=== PATIENT | female | born 1950 | race Caucasian/White ===

== ENCOUNTER → 2017-12-28 | Outpatient (CLI) | payer MEDICARE, BC ==
[2017-12-28 14:32] VITALS: BP 162/98; PULSE 79; RESP 20; TEMP 98.6; BMI 47.2
--- NOTE | 2017-12-28 14:33 | P.BASOAP ---
Subjective Progress Note Date: 12/28/17 Principal diagnosis: Dysphagia Patient on our service. He had lap band placed in 2007. Has had problems with intractable vomiting over the last several years. Has had an esophagram and a upper endoscopy performed at [facility] per the patient. Those studies were reportedly normal. Patient interested in the band removal. Has questions regarding conversion. Has bad reflux. Is more interested in gastric bypass because of the decreased incidence of reflux when compared to sleeve conversion. Denies abdominal pain. Objective - Vital Signs Vital signs: Vital Signs Temp 98.6 F 12/28/17 14:06 Pulse 79 12/28/17 14:06 Resp 20 12/28/17 14:06 BP 162/98 12/28/17 14:06 Pulse Ox Intake & Output 12/27/17 12/28/17 12/28/17 18:59 06:59 18:59 Weight 124.693 kg - Exam Abdomen: Soft, nontender, nondistended Assessment/Plan (1) Morbid obesity Narrative/Plan: Will talk to [facility] regarding insurance coverage for band removal. This would be considered a medical necessity given the intractable vomiting. Once the patient has fully recovered patient will likely seek consultation for conversion to gastric bypass. Plan: Date: 12/28/17 Initial Weight: 124.693 kg Initial BMI: 47.2 Current Weight: 124.693 kg Current BMI: 47.2 Type of Surgery: Total Volume in Band: 0 Previous Volume: Volume Removed: Volume Added: Band Size:
== END | disposition home or self-care (01) ==
LOC: BARWHC3 13:56
PROVIDERS: ATTEND Surgery
DX: E66.01 Morbid (severe) obesity due to excess calories (principal); Z68.42 Body mass index [BMI] 45.0-49.9, adult; Z98.84 Bariatric surgery status
CPT/HCPCS: 99201

== ENCOUNTER 2018-02-11 07:51 | Day surgery (SDC) | payer MEDICARE, BC ==
[2018-02-04 14:39] VITALS: BMI 45.6
[~2018-02-11 07:51] MED LIST: DEXAMETHASONE SOD PHOSPHATE 10 MG/ML 1 ML VIAL IV ONE; HEPARIN SODIUM,PORCINE 5,000 UNIT/ML 1 ML VIAL SQ ONE; HYDROmorphone 0.5 MG/0.5 ML SYRINGE IVP PRN; LACTATED RINGERS 1,000 ML IV SCH; LIDOCAINE 1% 20 ML VIAL (10MG/ML) FOR IV START INTRADERMA PRN; MIDAZOLAM 2 MG/2 ML VIAL IV PRN; ONDANSETRON 4 MG/2 ML VIAL IVP ONE; fentaNYL (PF) 50 MCG/ML 2 ML AMP IV PRN
--- NOTE | 2018-02-11 09:10 | P.GSHP ---
History of Present Illness H&P Date: 02/11/18 Chief Complaint: Dysphagia 67-year-old female known to our service. She underwent previous lap band placement in 2007. Patient has had problems with intractable vomiting. Patient is interested band removal. She is considering conversion to gastric bypass in the future. Past Medical History Past Medical History: GERD/Reflux Additional Past Medical History / Comment(s): DDD; chronic back pain secondary to 3 herniated discs, T12, L1, L4-5, bladder dysfunction/stress incontinence History of Any Multi-Drug Resistant Organisms: None Reported Past Surgical History: Adenoidectomy, Bariatric Surgery, Cholecystectomy, Orthopedic Surgery, Tonsillectomy Additional Past Surgical History / Comment(s): T & A 1966, Rhand carpal tunnel 1994 Left hand 1999, cholecystectomy 2006,Lap band placed 2007, Left heel spur 2010 Right 2016; eyelid lift 2012, D & C 2012, colonoscopy 2012 & 2016, Cervical spine fusion (C5-6-7) 2013, Right rotator cuff and shoulder repair 2015 , Past Anesthesia/Blood Transfusion Reactions: No Reported Reaction Additional Past Anesthesia/Blood Transfusion Reaction / Comment(s): NO transfusion to date. Patient states she had one problem waking up while at [employer] in 2006, but has never had any problems since and did not have any issues with Dr. Desai. States she has had 5 sx since this issue with no problems Smoking Status: Former smoker - Past Family History Father Family Medical History: Hypertension Additional Family Medical History / Comment(s): at age 87 from arthersclorosis Mother Family Medical History: Coronary Artery Disease (CAD) Additional Family Medical History / Comment(s): at age 80 from CAD Sister(s) Family Medical History: Cancer Additional Family Medical History / Comment(s): 2 sisters with cancer 1 with breast cancer, 1 sister back of the lining of the lungs cancer Medications and Allergies Home Medications Medication Instructions Recorded Confirmed Type Darifenacin Hydrobromide [Enablex] 15 mg PO DAILY 12/28/17 02/11/18 History Meloxicam [Mobic] 15 mg PO DAILY 12/28/17 02/11/18 History Omeprazole [PriLOSEC] 20 mg PO AC-[id number] 12/28/17 02/11/18 History Allergies Allergy/AdvReac Type Severity Reaction Status Date / Time bacitracin Allergy Intermediate Rash/Hives Verified 02/11/18 08:17 [From Neosporin ([id number])] neomycin Allergy Intermediate Rash/Hives Verified 02/11/18 08:17 [From Neosporin ([id number])] polymyxin B Allergy Intermediate Rash/Hives Verified 02/11/18 08:17 [From Neosporin ([id number])] Surgical - Exam Vital Signs Temp Pulse Resp BP Pulse Ox 98.0 F 75 16 165/90 96 02/11/18 08:14 02/11/18 08:14 02/11/18 08:14 02/11/18 08:14 02/11/18 08:14 Physical exam: General: Well-developed, well-nourished HEENT: Normocephalic, sclerae nonicteric Abdomen: Nontender, nondistended Extremities: No edema Neuro: Alert and oriented Assessment and Plan (1) Intractable vomiting Narrative/Plan: Will proceed with laparoscopic band removal at this time. The risks of bleeding , infection, stenosis, stricture, leak, abscess, fistula formation, peritonitis , reflux, vomiting, conversion to an open procedure, MA, PE, DVT, and were discussed. The patient understands and wishes to proceed. Current Visit: Yes Status: Acute Code(s): R11.10 - VOMITING, UNSPECIFIED SNOMED Code(s): 620650425
[2018-02-11] MEDS ORDERED: fentaNYL (PF) 50 MCG/ML 2 ML AMP ONE (09:34)
[2018-02-11] MEDS ORDERED: GLYCOPYRROLATE 0.2 MG/ML 2 ML VIAL ONE (09:34)
[2018-02-11] MEDS ORDERED: PROPOFOL 10 MG/ML 20 ML VIAL IV ONE (09:34)
[2018-02-11] MEDS ORDERED: LIDOCAINE 1% INJ 10MG/ML (20 ML MDV) ONE (09:34)
[2018-02-11] MEDS ORDERED: SUCCINYLCHOLINE CHLORIDE VIAL 200 MG/10 ML VIAL IV ONE (09:34)
[2018-02-11] MEDS ORDERED: NEOSTIGMINE 1 MG/ML 10 ML VIAL ONE (09:34)
[2018-02-11] MEDS ORDERED: MIDAZOLAM 2 MG/2 ML VIAL ONE (09:34)
[2018-02-11] MEDS ORDERED: LIDOCAINE 1% INJ 10MG/ML (10 ML MDV) SQ ONE (10:06)
--- NOTE | 2018-02-11 10:46 | P.OP ---
Date of Procedure: 02/11/18 Procedure(s) Performed: PREOPERATIVE DIAGNOSIS: Band intolerance/abdominal pain/intractable vomiting POSTOPERATIVE DIAGNOSIS: Same PROCEDURE: Laparoscopic lap band removal SURGEON: Giselle EBL: Minimal ANESTHESIA: General COMPLICATIONS: None OPERATIVE PROCEDURE: The patient was brought and placed on the operating room table in the supine position. The patient was placed under general anesthesia at that time. The patient was then placed in lithotomy. The abdomen was prepped and draped in the usual sterile fashion. The previous port incision was localized and then incised using a scalpel. The port was easily excised using electrocautery. Entrance into the peritoneal cavity occurred using a 5 mm optical trocar through the old trocar entrance site. Insufflation took place to 15 mmHg. A right subxiphoid 5 mm trocar was placed. This was then removed and the medium Nuria hook was used to elevate the left lobe of the liver anteriorly. An additional 5 mm trocar was placed under direct visualization in the left lateral upper quadrant. The original 5 mm trocar was switched to a 15 mm trocar. A additional 5 mm trocar was placed in the right upper quadrant under direct dilatation. There were adhesions to the band in the buccal that were lysed using both the LigaSure and electrocautery. The band was then cut using the laparoscopic jostin. The band was then removed easily in 2 portions through the 15 mm trocar site. The stomach itself was inspected and revealed no evidence of erosion or prolapse. The trochars were removed. The fascia at the 15 mm site was closed using a Robel-Anika 0 Vicryl stitch. The subcutaneous tissues at the port site was closed using a 3- 0 Vicryl suture. The skin at all 4 incision sites were closed using 4-0 Monocryl sutures. Steri-Strips and sterile dressings were then applied. DISPOSITION: Stable to recovery room
[2018-02-11 11:10] VITALS: TEMP 97.2
[2018-02-11 12:53] VITALS: BP 130/63; PULSE 44; RESP 16
== END 2018-02-11 13:05 | disposition home or self-care (01) ==
LOC: OR 07:51
PROVIDERS: ATTEND Surgery
DX: R11.10 Vomiting, unspecified (principal); K21.9 Gastro-esophageal reflux disease without esophagitis; G89.29 Other chronic pain; E66.01 Morbid (severe) obesity due to excess calories; Z98.84 Bariatric surgery status; Z87.891 Personal history of nicotine dependence; Z82.49 Family history of ischemic heart disease and other diseases of the circulatory system; Z80.3 Family history of malignant neoplasm of breast; Z90.49 Acquired absence of other specified parts of digestive tract; Z79.1 Long term (current) use of non-steroidal anti-inflammatories (NSAID); Z79.899 Other long term (current) drug therapy; Z88.3 Allergy status to other anti-infective agents; Z98.1 Arthrodesis status; Z68.42 Body mass index [BMI] 45.0-49.9, adult
CPT/HCPCS: 43774; J2250; J0330; J1644; J1100; J2710; J0690; J2405; J2001 ×2; J3010; J2704

== ENCOUNTER → 2018-03-01 | Outpatient (CLI) | payer MEDICARE, BC ==
[2018-03-01 14:44] VITALS: BP 131/90; PULSE 79; TEMP 98.2; BMI 47.4
--- NOTE | 2018-03-01 17:19 | P.BASOAP ---
Subjective Progress Note Date: 03/01/18 Principal diagnosis: Abdominal pain Patient seen today postop after lap band removal. The patient has unfortunately been having ongoing complaints of epigastric pain that radiates to the back. Sometimes there is chest pain as well. This is not related to eating or activities. Duration of symptoms is variable. Occasional episodes of vomiting although seems to be slightly improved since band removal. Some pain at her port incision site. Denies fevers. Objective - Vital Signs Vital signs: Vital Signs Temp 98.2 F 03/01/18 14:39 Pulse 79 03/01/18 14:39 Resp BP 131/90 03/01/18 14:39 Pulse Ox Intake & Output 02/28/18 03/01/18 03/01/18 18:59 06:59 18:59 Weight 125.282 kg - Exam Abdomen: Soft, mild epigastric tenderness, incisions clean and dry Assessment/Plan (1) Abdominal pain Narrative/Plan: Patient unfortunately is still having some degree of abdominal pain she has been having for the last 2 years or so. She is disappointed that the band removal did not alleviate those symptoms. The operative findings were reviewed with her. These symptoms are persisting despite antiacid therapy. We'll proceed with CT abdomen and pelvis at this time. If that study is unremarkable recommend reevaluation by GI Dr. Shafer for possible upper endoscopy or further workup. Plan: Date: 03/01/18 Initial Weight: 124.693 kg Initial BMI: 47.2 Current Weight: 125.282 kg Current BMI: 47.4 Type of Surgery: Total Volume in Band: 0 Previous Volume: Volume Removed: Volume Added: Band Size:
== END ==
LOC: BARWHC3 14:17
PROVIDERS: ATTEND Surgery
DX: R10.9 Unspecified abdominal pain (principal)
CPT/HCPCS: 99211

== ENCOUNTER → 2018-03-10 | Outpatient (CLI) | payer MEDICARE, BC ==
--- NOTE | 2018-03-10 16:58 | CT ---
EXAMINATION TYPE: CT abdomen pelvis w con DATE OF EXAM: 03/10/2018 COMPARISON: None HISTORY: Generalized abdominal pain CT DLP: 2950.6 mGycm Automated exposure control for dose reduction was used. TECHNIQUE: Helical acquisition of images from the lung bases through the pelvis have been completed. CONTRAST: Performed with Oral Contrast and with IV Contrast, patient injected with 80 mL of Isovue 300. FINDINGS: There is a prominent distal esophagus present, dilation of distal esophagus could be due to recurrence or distal esophageal pouch. Within the subcutaneous fat along the anterior abdominal wall rectus abdominous muscle there is a hypodense focus measuring approximately 3.3 x 1.1 cm with enhanc ing wall and inflammatory changes within the subcutaneous fat which extend to the skin surface with l ocal skin thickening suggestive of small local abscess or prior traumatic change and due to hematoma with possible local inflammatory change extending to the level of the rectus abdominis. Lap band is n o longer evident. LUNG BASES: No significant abnormality is appreciated. AORTA: No significant abnormality is appreciated. LIVER/GB: Patient is post cholecystectomy. Liver is unremarkable. PANCREAS: No significant abnormality is seen. SPLEEN: No significant abnormality is seen. ADRENALS: No significant abnormality is seen. KIDNEYS: Retroaortic left renal vein is present. REPRODUCTIVE ORGANS: No significant abnormality is seen BOWEL: Diverticular changes associated with the sigmoid colon. No evident bowel obstruction. Appendi x is not seen. FREE AIR: No Free Air visible. ASCITES: None visible. PELVIC ADENOPATHY: None visualized. RETROPERITONEAL ADENOPATHY: No Retroperitoneal Adenopathy visible. URINARY BLADDER: No significant abnormality is seen. OSSEOUS STRUCTURES: Degenerative disc changes are present in the visualized spine. There are facet a rthropathy changes as well as spinal curvature.. IMPRESSION: FINDINGS WITHIN THE SUBCUTANEOUS FAT IS LIKELY RESIDUAL FROM LAP BAND REMOVAL, THERE MAY BE LOCAL SER IRAJ OR HEMATOMA, CORRELATE TO EXCLUDE ABSCESS. POSTOP CHANGES OF THE GASTROESOPHAGEAL JUNCTION OLVIN CRIBED. ADDITIONAL FINDINGS ABOVE.
== END | disposition home or self-care (01) ==
LOC: RADCTMAIN 13:53
PROVIDERS: ATTEND Surgery
DX: R93.5 Abnormal findings on diagnostic imaging of other abdominal regions, including retroperitoneum (principal); Z90.89 Acquired absence of other organs
CPT/HCPCS: 82565; 84520; 74177; 36415; Q9967

== ENCOUNTER → 2018-04-26 | Outpatient (CLI) | payer MEDICARE, BC ==
[2018-04-26 14:27] VITALS: BP 140/88; PULSE 72; RESP 16; TEMP 98; BMI 47.5
--- NOTE | 2018-04-26 15:03 | P.BASOAP ---
Subjective Progress Note Date: 04/26/18 Principal diagnosis: Morbid obesity Patient returns after recent band removal. When she was last seen in February her pain in the epigastric region was still present. She has since seen her sleep lab technologist. She has started a bowel regimen. Since that time she believes the pain has improved and is now gone. Here to discuss options of future bariatric surgery. Denies nausea or vomiting. Her hunger has increased since her band removal. Her weight thankfully has not changed significantly since her band removal. Objective - Vital Signs Vital signs: Vital Signs Temp 98 F 04/26/18 14:24 Pulse 72 04/26/18 14:24 Resp 16 04/26/18 14:24 BP 140/88 04/26/18 14:24 Pulse Ox Intake & Output 04/25/18 04/26/18 04/26/18 18:59 06:59 18:59 Weight 125.702 kg - Exam Abdomen: Soft, nontender, nondistended Assessment/Plan (1) Abdominal pain Narrative/Plan: Thank you the patient's pain that was present requiring band removal has resolved. The patient interested in possible future bariatric surgery. Given all the difficulties that the patient had recently with her epigastric abdominal pain and frequent vomiting I suggested that the patient wait for now on any decisions regarding future bariatric surgery. If her nonsurgical attempts at weight loss were unsuccessful next year would reconsider additional bariatric surgery. Patient is comfortable with those recommendations at this time. She will follow up as needed at this point. Plan: Date: 04/26/18 Initial Weight: 124.693 kg Initial BMI: 47.2 Current Weight: 125.702 kg Current BMI: 47.5 Type of Surgery: Total Volume in Band: 0 Previous Volume: Volume Removed: Volume Added: Band Size:
== END | disposition home or self-care (01) ==
LOC: BARWHC3 14:18
PROVIDERS: ATTEND Surgery
DX: E66.01 Morbid (severe) obesity due to excess calories (principal); R10.9 Unspecified abdominal pain; Z68.42 Body mass index [BMI] 45.0-49.9, adult
CPT/HCPCS: 99211